=== PATIENT | female | born 1935 | race Caucasian/White ===

== ENCOUNTER → 2017-03-18 | Outpatient (CLI) | payer MEDICARE | END | disposition home or self-care (01) | LOC: CVU 12:52 | PROVIDERS: ATTEND Internal Medicine Cardiovascular Disease | DX: I35.8 Other nonrheumatic aortic valve disorders (principal); I25.10 Atherosclerotic heart disease of native coronary artery without angina pectoris; I11.9 Hypertensive heart disease without heart failure | CPT/HCPCS: 93306 ==

== ENCOUNTER → 2017-07-15 | Outpatient (CLI) | payer MEDICARE ==
[~2017-07-15] MED LIST: REGADENOSON 0.4 MG/5 ML SYRINGE ONE
== END | disposition home or self-care (01) ==
LOC: CFH 07:41
PROVIDERS: ATTEND Internal Medicine Cardiovascular Disease
DX: I65.23 Occlusion and stenosis of bilateral carotid arteries (principal); I10 Essential (primary) hypertension; I25.10 Atherosclerotic heart disease of native coronary artery without angina pectoris; E78.2 Mixed hyperlipidemia; Z95.5 Presence of coronary angioplasty implant and graft
CPT/HCPCS: 78452; 93017; 93880; A9502; J2785

== ENCOUNTER 2017-07-20 19:04 | Inpatient (IN) | payer MEDICARE ==
[~2017-07-20] VITALS: Ht 170.2 cm; Wt 73.9 kg
[2017-07-20] MEDS ORDERED: SODIUM CHLORIDE FLUSH 10ML SYR IVF ONE (20:00)
[2017-07-20] MEDS ORDERED: CLOP75TA52 PO (20:12)
[2017-07-20] MEDS ORDERED: ATEN25TA PO (20:13)
[2017-07-20 20:18] LABS: MEAN CORPUSCULAR HEMOGLOBIN 29.5 pg (27.0-34.8); MEAN CORPUSCULAR HGB CONC 33.5 g/dL (32.4-35.8); MEAN CORPUSCULAR VOLUME 88.3 fL (80-100); PLATELET COUNT 248 x10^3/uL (130-400); RED BLOOD COUNT 4.77 x10^6/uL (3.82-5.3); RED CELL DISTRIBUTION WIDTH 15.6 % (9.6-15.2)
[2017-07-20 20:27] LABS: ALANINE AMINOTRANSFERASE 21 U/L (12-78); ALBUMIN 3.5 g/dL (3.4-5.0); ANION GAP 9 mmol/L (5-15); CALCIUM 8.7 mg/dL (8.5-10.1); CHLORIDE 103 mmol/L (98-107); CREATININE 1.09 mg/dL (0.55-1.02)
[2017-07-20 20:29] LABS: ALKALINE PHOSPHATASE 102 U/L (45-117); BILIRUBIN,TOTAL 0.7 mg/dL (0.2-1.0); TOTAL PROTEIN 7.1 g/dL (6.4-8.2)
[2017-07-20 20:31] LABS: MICROSCOPIC AUTO
[2017-07-20 20:32] LABS: CULTURE INDICATED? YES
[2017-07-20 20:47] LABS: MD SCAN
[2017-07-20 20:48] LABS: BASOPHILS # (AUTO) 0.08 x10^3/uL (0-0.1); BASOPHILS % (AUTO) 1 % (0-1); EOSINOPHILS # (AUTO) 0.03 x10^3/uL (0-0.4); EOSINOPHILS % (AUTO) 0 % (1-7); LYMPHOCYTES # (AUTO) 1.86 x10^3/uL (1-3.4); LYMPHOCYTES % (AUTO) 14 % (22-44); MONOCYTES # (AUTO) 1.47 x10^3/uL (0.2-0.8); MONOCYTES % (AUTO) 11 % (2-9); NEUTROPHILS # (AUTO) 10.04 x10^3/uL (1.8-6.8); NEUTROPHILS % (AUTO) 75 % (42-75)
[2017-07-20] MEDS ORDERED: OMNIPAQUE 350 MG/ML, 100ML BOTTLE ONE (20:52)
[2017-07-20] MEDS ORDERED: METRONIDAZOLE PMX 500MG/100ML 100 ML IV ONE (21:30)
[2017-07-20] MEDS ORDERED: AMPICILLIN/SULBACTAM 3 GM in SODIUM CHLORIDE 0.9% 100 ML IV ONE (21:30)
[2017-07-20] MEDS ORDERED: morphine SULFATE 10 MG/ML, 1ML IVPush PRN (22:00)
[2017-07-20] MEDS ORDERED: BISACODYL 10 MG SUPP PR PRN (22:00)
[2017-07-20] MEDS: HEPARIN 5,000 UNITS/ML, 1ML SQ SCH ×2 (22:00→23:58)
[2017-07-20] MEDS ORDERED: ACETAMINOPHEN 325 MG TABLET PO PRN (22:00)
[2017-07-20] MEDS ORDERED: POLYETHYLENE GLYCOL 17 GM PACKET PO PRN (22:00)
[2017-07-20] MEDS ORDERED: ONDANSETRON 2MG/ML, 2ML IVPush PRN (22:00)
[2017-07-20] MEDS: METRONIDAZOLE PMX 500MG/100ML 100 ML IV SCH (23:55)
[2017-07-21] MEDS: TEMAZEPAM 15 MG CAPSULE PO PRN ×2 (00:04→23:23)
[2017-07-21] MEDS: CIPROFLOXACIN/PMX 400MG/200ML 200 ML IV SCH ×2 (01:12→12:55)
[2017-07-21 02:59] VITALS: BP 122/67
[2017-07-21 03:03] VITALS: BP 137/84
[2017-07-21 06:04] LABS: BASOPHILS # (AUTO) 0.03 x10^3/uL (0-0.1); BASOPHILS % (AUTO) 0 % (0-1); EOSINOPHILS # (AUTO) 0.08 x10^3/uL (0-0.4); EOSINOPHILS % (AUTO) 1 % (1-7); LYMPHOCYTES # (AUTO) 1.74 x10^3/uL (1-3.4); LYMPHOCYTES % (AUTO) 19 % (22-44); MD NO; MEAN CORPUSCULAR HEMOGLOBIN 29.5 pg (27.0-34.8); MEAN CORPUSCULAR HGB CONC 32.9 g/dL (32.4-35.8); MEAN CORPUSCULAR VOLUME 89.7 fL (80-100); MEAN PLATELET VOLUME 8.9 fL (7.4-10.4); MONOCYTES # (AUTO) 1.35 x10^3/uL (0.2-0.8); MONOCYTES % (AUTO) 15 % (2-9); NEUTROPHILS # (AUTO) 6.05 x10^3/uL (1.8-6.8); NEUTROPHILS % (AUTO) 65 % (42-75); PLATELET COUNT 214 x10^3/uL (130-400); RED BLOOD COUNT 4.22 x10^6/uL (3.82-5.3); RED CELL DISTRIBUTION WIDTH 15.4 % (9.6-15.2)
[2017-07-21 06:10] LABS: ALBUMIN 2.8 g/dL (3.4-5.0); ANION GAP 9 mmol/L (5-15); CALCIUM 8.4 mg/dL (8.5-10.1); CHLORIDE 106 mmol/L (98-107)
[2017-07-21 06:14] LABS: ALANINE AMINOTRANSFERASE 17 U/L (12-78); ALKALINE PHOSPHATASE 79 U/L (45-117); BILIRUBIN,TOTAL 0.7 mg/dL (0.2-1.0); CREATININE 0.95 mg/dL (0.55-1.02)
[2017-07-21 07:57] VITALS: BP 127/59
[2017-07-21] MEDS: SENNA/DOCUSATE TABLET PO SCH (07:58)
[2017-07-21] MEDS: ATENOLOL 25 MG TABLET PO SCH (07:58)
[2017-07-21] MEDS: METRONIDAZOLE PMX 500MG/100ML 100 ML IV SCH ×2 (07:58→16:26)
[2017-07-21] MEDS: CLOPIDOGREL 75 MG TABLET PO SCH (07:58)
[2017-07-21] MEDS: SODIUM CHLORIDE 0.9% 1,000 ML IV SCH ×2 (11:20)
[2017-07-21 14:00] VITALS: BP 121/64
[2017-07-21] MEDS: HEPARIN 5,000 UNITS/ML, 1ML SQ SCH ×2 (14:00→22:57)
[2017-07-21 20:02] VITALS: BP 131/72
[2017-07-22] MEDS: METRONIDAZOLE PMX 500MG/100ML 100 ML IV SCH ×3 (00:26→18:16)
[2017-07-22] MEDS: CIPROFLOXACIN/PMX 400MG/200ML 200 ML IV SCH ×2 (01:25→13:26)
[2017-07-22 01:59] VITALS: BP 119/52
[2017-07-22 05:35] LABS: BASOPHILS # (AUTO) 0.13 x10^3/uL (0-0.1); BASOPHILS % (AUTO) 2 % (0-1); EOSINOPHILS # (AUTO) 0.11 x10^3/uL (0-0.4); EOSINOPHILS % (AUTO) 2 % (1-7); LYMPHOCYTES # (AUTO) 1.65 x10^3/uL (1-3.4); LYMPHOCYTES % (AUTO) 24 % (22-44); MD NO; MEAN CORPUSCULAR HEMOGLOBIN 29.7 pg (27.0-34.8); MEAN CORPUSCULAR HGB CONC 33.2 g/dL (32.4-35.8); MEAN CORPUSCULAR VOLUME 89.4 fL (80-100); MEAN PLATELET VOLUME 8.9 fL (7.4-10.4); MONOCYTES # (AUTO) 0.92 x10^3/uL (0.2-0.8); MONOCYTES % (AUTO) 13 % (2-9); NEUTROPHILS # (AUTO) 4.17 x10^3/uL (1.8-6.8); NEUTROPHILS % (AUTO) 60 % (42-75); PLATELET COUNT 213 x10^3/uL (130-400); RED BLOOD COUNT 4.19 x10^6/uL (3.82-5.3); RED CELL DISTRIBUTION WIDTH 15.1 % (9.6-15.2)
[2017-07-22 05:44] LABS: ANION GAP 8 mmol/L (5-15); CALCIUM 8.2 mg/dL (8.5-10.1); CHLORIDE 111 mmol/L (98-107); CREATININE 0.77 mg/dL (0.55-1.02)
[2017-07-22] MEDS: HEPARIN 5,000 UNITS/ML, 1ML SQ SCH ×2 (06:39→18:16)
[2017-07-22 06:43] VITALS: BP 129/71
[2017-07-22] MEDS: ATENOLOL 25 MG TABLET PO SCH (08:26)
[2017-07-22] MEDS: CLOPIDOGREL 75 MG TABLET PO SCH (08:26)
[2017-07-22] MEDS: SENNA/DOCUSATE TABLET PO SCH (08:27)
[2017-07-22 12:22] VITALS: BP 135/71
[2017-07-22 20:33] VITALS: BP 143/73
[2017-07-22] MEDS: TEMAZEPAM 15 MG CAPSULE PO PRN (22:37)
[2017-07-23] MEDS: CIPROFLOXACIN/PMX 400MG/200ML 200 ML IV SCH (01:24)
[2017-07-23] MEDS: METRONIDAZOLE PMX 500MG/100ML 100 ML IV SCH ×2 (02:11→09:16)
[2017-07-23] MEDS: HEPARIN 5,000 UNITS/ML, 1ML SQ SCH ×2 (02:11→10:00)
[2017-07-23 02:20] VITALS: BP 161/78
[2017-07-23 05:40] LABS: ANION GAP 6 mmol/L (5-15); BASOPHILS # (AUTO) 0.04 x10^3/uL (0-0.1); BASOPHILS % (AUTO) 1 % (0-1); CALCIUM 8.5 mg/dL (8.5-10.1); CHLORIDE 111 mmol/L (98-107); CREATININE 0.92 mg/dL (0.55-1.02); EOSINOPHILS # (AUTO) 0.12 x10^3/uL (0-0.4); EOSINOPHILS % (AUTO) 2 % (1-7); LYMPHOCYTES # (AUTO) 1.46 x10^3/uL (1-3.4); LYMPHOCYTES % (AUTO) 29 % (22-44); MD NO; MEAN CORPUSCULAR HEMOGLOBIN 29.2 pg (27.0-34.8); MEAN CORPUSCULAR HGB CONC 32.8 g/dL (32.4-35.8); MEAN CORPUSCULAR VOLUME 89.1 fL (80-100); MONOCYTES # (AUTO) 0.68 x10^3/uL (0.2-0.8); MONOCYTES % (AUTO) 13 % (2-9); NEUTROPHILS # (AUTO) 2.82 x10^3/uL (1.8-6.8); NEUTROPHILS % (AUTO) 55 % (42-75); PLATELET COUNT 263 x10^3/uL (130-400); RED BLOOD COUNT 4.29 x10^6/uL (3.82-5.3); RED CELL DISTRIBUTION WIDTH 15.5 % (9.6-15.2)
[2017-07-23 07:02] VITALS: BP 121/55
[2017-07-23] MEDS: CLOPIDOGREL 75 MG TABLET PO SCH (09:16)
[2017-07-23] MEDS: ATENOLOL 25 MG TABLET PO SCH (09:16)
[2017-07-23] MEDS: SENNA/DOCUSATE TABLET PO SCH (09:16)
[2017-07-23] MEDS ORDERED: CIPR500T87 PO (09:24)
[2017-07-23] MEDS ORDERED: METR500T PO (09:24)
== END 2017-07-23 11:30 | disposition home or self-care (01) | DRG 392 ==
LOC: ED 21:25 → EDIP 21:51 → 3NE 23:01 → DCLOUNGE 07-23 11:07
PROVIDERS: ADMIT Internal Medicine; ATTEND Internal Medicine
DX: K57.32 Diverticulitis of large intestine without perforation or abscess without bleeding (principal); E87.1 Hypo-osmolality and hyponatremia; E44.0 Moderate protein-calorie malnutrition; N30.01 Acute cystitis with hematuria; I25.10 Atherosclerotic heart disease of native coronary artery without angina pectoris; I10 Essential (primary) hypertension; Z90.710 Acquired absence of both cervix and uterus; Z90.49 Acquired absence of other specified parts of digestive tract; Z95.5 Presence of coronary angioplasty implant and graft; Z68.25 Body mass index [BMI] 25.0-25.9, adult
CPT/HCPCS: 36415; 74177; 80048; 80053; 81001; 85025; 87040; 87086; 99285; J0295; J0744; J1644; Q9967; J7030

== ENCOUNTER 2017-07-29 15:52 | Inpatient (IN) | payer MEDICARE ==
[~2017-07-29] VITALS: Ht 167.6 cm; Wt 75.0 kg
[~2017-07-29 15:52] MED LIST changes: +ATEN25TA PO; +CIPR500T87 PO; +CLOP75TA52 PO; +METR500T PO; -REGADENOSON 0.4 MG/5 ML SYRINGE ONE
[2017-07-29 16:27] LABS: BASOPHILS # (AUTO) 0.02 x10^3/uL (0-0.1); BASOPHILS % (AUTO) 0 % (0-1); EOSINOPHILS # (AUTO) 0.06 x10^3/uL (0-0.4); EOSINOPHILS % (AUTO) 1 % (1-7); LYMPHOCYTES % (AUTO) 26 % (22-44); MD NO; MEAN CORPUSCULAR HEMOGLOBIN 29.8 pg (27.0-34.8); MEAN CORPUSCULAR HGB CONC 33.2 g/dL (32.4-35.8); MEAN CORPUSCULAR VOLUME 89.8 fL (80-100); MEAN PLATELET VOLUME 8.2 fL (7.4-10.4); MONOCYTES # (AUTO) 0.54 x10^3/uL (0.2-0.8); MONOCYTES % (AUTO) 9 % (2-9); NEUTROPHILS # (AUTO) 4.02 x10^3/uL (1.8-6.8); NEUTROPHILS % (AUTO) 64 % (42-75); PLATELET COUNT 399 x10^3/uL (130-400); RED BLOOD COUNT 4.61 x10^6/uL (3.82-5.3); RED CELL DISTRIBUTION WIDTH 15.5 % (9.6-15.2)
[2017-07-29 16:30] LABS: ALANINE AMINOTRANSFERASE 67 U/L (12-78); ALBUMIN 3.4 g/dL (3.4-5.0); ANION GAP 8 mmol/L (5-15); CALCIUM 8.7 mg/dL (8.5-10.1); CHLORIDE 105 mmol/L (98-107); CREATININE 1.04 mg/dL (0.55-1.02)
[2017-07-29] MEDS ORDERED: SODIUM CHLORIDE FLUSH 10ML SYR IVF ONE (16:30)
[2017-07-29] MEDS ORDERED: PANTOPRAZOLE 40 MG IV IVPush ONE (16:30)
[2017-07-29 16:32] LABS: ALKALINE PHOSPHATASE 79 U/L (45-117); BILIRUBIN,TOTAL 0.2 mg/dL (0.2-1.0); TOTAL PROTEIN 6.9 g/dL (6.4-8.2)
[2017-07-29 16:49] LABS: INTERNATIONAL NORMALIZED RATIO 1.05 (0.93-1.1); PROTHROMBIN TIME 10.8 Seconds (9.6-11.5)
[2017-07-29] MEDS ORDERED: PANTOPRAZOLE 40 MG IV ONE (16:57)
[2017-07-29] MEDS ORDERED: OMNIPAQUE 350 MG/ML, 100ML BOTTLE ONE (20:10)
[2017-07-29] MEDS ORDERED: ONDANSETRON 2MG/ML, 2ML IVPush PRN (20:30)
[2017-07-29] MEDS ORDERED: VISIPAQUE 270 MG/ML, 150ML BOTTLE ONE (21:00)
[2017-07-29] MEDS ORDERED: FENTANYL PF 100 MCG/2ML ONE (21:08)
[2017-07-29] MEDS ORDERED: MIDAZOLAM 1 MG/ML, 5ML ONE (21:09)
[2017-07-29] MEDS ORDERED: NALOXONE 1 MG/ML, 2ML ONE (21:09)
[2017-07-29] MEDS ORDERED: FLUMAZENIL 0.1 MG/1 ML, 5ML ONE (21:09)
[2017-07-29 22:56] VITALS: BP 152/51
[2017-07-29] MEDS: SODIUM CHLORIDE 0.9% 1,000 ML IV SCH (23:55)
[2017-07-29] MEDS: metroNIDAZOLE 500 MG TABLET PO SCH (23:56)
[2017-07-29] MEDS: CIPROFLOXACIN 500 MG TABLET PO SCH (23:56)
[2017-07-30] VITALS (7 sets, daily range): BP systolic 105–166; BP diastolic 60–75
[2017-07-30 05:22] LABS: BASOPHILS # (AUTO) 0.03 x10^3/uL (0-0.1); BASOPHILS % (AUTO) 1 % (0-1); EOSINOPHILS # (AUTO) 0.07 x10^3/uL (0-0.4); EOSINOPHILS % (AUTO) 1 % (1-7); LYMPHOCYTES % (AUTO) 23 % (22-44); MD NO; MEAN CORPUSCULAR HEMOGLOBIN 29.9 pg (27.0-34.8); MEAN CORPUSCULAR HGB CONC 33.4 g/dL (32.4-35.8); MEAN CORPUSCULAR VOLUME 89.6 fL (80-100); MEAN PLATELET VOLUME 8.5 fL (7.4-10.4); MONOCYTES # (AUTO) 0.83 x10^3/uL (0.2-0.8); MONOCYTES % (AUTO) 14 % (2-9); NEUTROPHILS # (AUTO) 3.82 x10^3/uL (1.8-6.8); NEUTROPHILS % (AUTO) 62 % (42-75); PLATELET COUNT 361 x10^3/uL (130-400); RED BLOOD COUNT 4.06 x10^6/uL (3.82-5.3); RED CELL DISTRIBUTION WIDTH 15.5 % (9.6-15.2)
[2017-07-30 05:25] LABS: ALANINE AMINOTRANSFERASE 51 U/L (12-78); ALBUMIN 2.9 g/dL (3.4-5.0); ANION GAP 8 mmol/L (5-15); CALCIUM 7.9 mg/dL (8.5-10.1); CHLORIDE 113 mmol/L (98-107)
[2017-07-30 05:28] LABS: ALKALINE PHOSPHATASE 67 U/L (45-117); BILIRUBIN,TOTAL 0.4 mg/dL (0.2-1.0); CREATININE 0.73 mg/dL (0.55-1.02); TOTAL PROTEIN 5.7 g/dL (6.4-8.2)
[2017-07-30] MEDS: metroNIDAZOLE 500 MG TABLET PO SCH ×2 (09:22→21:01)
[2017-07-30] MEDS: CIPROFLOXACIN 500 MG TABLET PO SCH ×2 (09:22→21:01)
[2017-07-30] MEDS: ATENOLOL 25 MG TABLET PO SCH (09:22)
[2017-07-30] MEDS: SODIUM CHLORIDE 0.9% 1,000 ML IV SCH (12:40)
[2017-07-30] MEDS: AMLODIPINE 5 MG TABLET PO SCH (12:41)
[2017-07-30] MEDS: ACETAMINOPHEN 325 MG TABLET PO PRN (21:01)
[2017-07-31] MEDS: SODIUM CHLORIDE 0.9% 1,000 ML IV SCH ×2 (01:05→18:00)
[2017-07-31 02:39] VITALS: BP 120/60
[2017-07-31 06:59] LABS: BASOPHILS # (AUTO) 0.02 x10^3/uL (0-0.1); BASOPHILS % (AUTO) 0 % (0-1); EOSINOPHILS # (AUTO) 0.07 x10^3/uL (0-0.4); EOSINOPHILS % (AUTO) 1 % (1-7); LYMPHOCYTES # (AUTO) 1.33 x10^3/uL (1-3.4); LYMPHOCYTES % (AUTO) 24 % (22-44); MD NO; MEAN CORPUSCULAR HEMOGLOBIN 29.1 pg (27.0-34.8); MEAN CORPUSCULAR HGB CONC 32.9 g/dL (32.4-35.8); MEAN CORPUSCULAR VOLUME 88.5 fL (80-100); MEAN PLATELET VOLUME 8.1 fL (7.4-10.4); MONOCYTES # (AUTO) 0.72 x10^3/uL (0.2-0.8); MONOCYTES % (AUTO) 13 % (2-9); NEUTROPHILS # (AUTO) 3.43 x10^3/uL (1.8-6.8); NEUTROPHILS % (AUTO) 62 % (42-75); PLATELET COUNT 330 x10^3/uL (130-400); RED BLOOD COUNT 3.88 x10^6/uL (3.82-5.3); RED CELL DISTRIBUTION WIDTH 15.3 % (9.6-15.2)
[2017-07-31 08:08] VITALS: BP 153/70
[2017-07-31] MEDS: metroNIDAZOLE 500 MG TABLET PO SCH (09:01)
[2017-07-31] MEDS: CIPROFLOXACIN 500 MG TABLET PO SCH (09:01)
[2017-07-31] MEDS: ATENOLOL 25 MG TABLET PO SCH (09:02)
[2017-07-31] MEDS: AMLODIPINE 5 MG TABLET PO SCH (09:02)
[2017-07-31] MEDS: ACETAMINOPHEN 325 MG TABLET PO PRN (09:05)
[2017-07-31 14:00] VITALS: BP 111/65
== END 2017-07-31 18:35 | disposition home or self-care (01) | DRG 358 ==
LOC: ED 19:50 → EDIP 20:13 → 3NE 22:49
PROVIDERS: ADMIT Hospitalist; ATTEND Hospitalist
PROC: 04LB3DZ Occlusion of Inferior Mesenteric Artery with Intraluminal Device, Percutaneous Approach (ICD-10-PCS; principal; 2017-07-29)
PROC: B4151ZZ Fluoroscopy of Inferior Mesenteric Artery using Low Osmolar Contrast (ICD-10-PCS; 2017-07-29)
DX: K57.31 Diverticulosis of large intestine without perforation or abscess with bleeding (principal); I10 Essential (primary) hypertension; I25.10 Atherosclerotic heart disease of native coronary artery without angina pectoris; Z87.891 Personal history of nicotine dependence; Z95.5 Presence of coronary angioplasty implant and graft; Z79.02 Long term (current) use of antithrombotics/antiplatelets; Z90.710 Acquired absence of both cervix and uterus; Z90.49 Acquired absence of other specified parts of digestive tract; Z87.440 Personal history of urinary (tract) infections
CPT/HCPCS: 36415; 37244; 74174; 75726; 80053; 85014; 85018; 85025; 85610; 85730; 86850; 86900; 96374; 99156; 99157; C1894; J2250; J3010; Q9966; Q9967; C1760; C1769; C9113; J2310; J7030

== ENCOUNTER → 2017-12-02 | Outpatient (CLI) | payer MEDICARE | END | disposition home or self-care (01) | LOC: RAD 13:57 | PROVIDERS: ATTEND Nurse Practitioner Family | DX: M16.12 Unilateral primary osteoarthritis, left hip (principal); K76.0 Fatty (change of) liver, not elsewhere classified; M51.36 Other intervertebral disc degeneration, lumbar region; M48.061 Spinal stenosis, lumbar region without neurogenic claudication | CPT/HCPCS: 72148 ==

== ENCOUNTER → 2018-01-17 | Outpatient (CLI) | payer MEDICARE | END | disposition home or self-care (01) | LOC: CFH 12:42 | PROVIDERS: ATTEND Nurse Practitioner Family | DX: R60.0 Localized edema (principal); M79.602 Pain in left arm; M79.89 Other specified soft tissue disorders ==